=== PATIENT | male | born 1970 | race Caucasian/White ===

== ENCOUNTER 2021-07-06 19:41 | Emergency (ER) | payer OTHER ==
[~2021-07-06] VITALS: Ht 182.9 cm; Wt 106.6 kg
[2021-07-06 19:42] VITALS: BP 128/93
[2021-07-06] MEDS ORDERED: NOHOMEMEDICATIONS (19:49)
[2021-07-06] MEDS ORDERED: AUGMENTIN 875-1 EACH PO (20:37)
== END 2021-07-06 20:36 | disposition home or self-care (01) ==
LOC: ER 19:41
DX: S61.451A Open bite of right hand, initial encounter (principal); W54.0XXA Bitten by dog, initial encounter; Y93.89 Activity, other specified; Y92.89 Other specified places as the place of occurrence of the external cause; Y99.8 Other external cause status